=== PATIENT | male | born 1945 | race Caucasian/White ===

== ENCOUNTER → 2020-06-27 | Outpatient (CLI) | payer MEDICARE ==
--- NOTE | 2020-06-27 10:32 | Diagnostic Imaging Report ---
EXAM: Renal Ultrasound INDICATION: ^CKD STAGE 4 COMPARISON: None TECHNIQUE: Transverse and longitudinal images of the kidneys and bladder were obtained. FINDINGS: Right Kidney: Length: 12.3 cm Appearance: Normal echogenicity. Collecting system: No hydronephrosis Stones: None Cyst/Mass: Multiple simple renal cysts, the largest at the upper pole measures up to 4.9 x 4.5 x 4.2 cm. Left Kidney: Length: 10.5 cm Appearance: Normal echogenicity. Collecting system: No hydronephrosis Stones: None Cyst/Mass: None Bladder: No mass or calculi. Bilateral ureteral jets visualized. Prevoid volume estimate of 67 cc. Postvoid images demonstrate residual bladder volume of 14 cc. The prostate appears within normal limits with volume estimate of 21 cc. IMPRESSION: No hydronephrosis or renal calculi. Simple right renal cysts measure up to 4.9 cm. Pre and post void bladder volumes as above. Signed by: Modesta Shannon MD on 06/27/2020 10:29 AM
== END ==
LOC: US 09:16
PROVIDERS: ATTEND Internal Medicine Nephrology
DX: N18.9 Chronic kidney disease, unspecified (principal)
CPT/HCPCS: 76770; 76857

== ENCOUNTER 2023-08-29 06:18 | Inpatient (IN) | payer MEDICARE, OTHER ==
[~2023-08-29] VITALS: Ht 172.7 cm; Wt 77.1 kg
[2023-08-29] MEDS ORDERED: Vancomycin IV 1.25 GM in SODIUM CHLORIDE 0.9% 250ML 250 ML IV STA (06:43)
[2023-08-29] MEDS ORDERED: SODIUM CHLORIDE 0.9% 1000ML 1,000 ML IV ONE (06:45)
[2023-08-29] MEDS ORDERED: CEFEPIME 2 GM in SODIUM CHLORIDE 0.9% 100 ML IV ONE (06:45)
[2023-08-29] MEDS ORDERED: ACETAMINOPHEN 325 MG TAB PO ONE (07:00)
[2023-08-29] MEDS ORDERED: Vancomycin IV 500 MG ONE (07:16)
[2023-08-29 07:27] LABS: BASOPHILS # (AUTO) 0.1 (0.0-0.1); BASOPHILS % 0.3 % (0.0-1.0); EOSINOPHILS % 0.1 % (0.0-6.0); HEMOGLOBIN 9.5 g/dL (14.0-18.0); LYMPHOCYTES # (AUTO) 0.4 (1.0-3.2); LYMPHOCYTES % 2.4 % (18.0-39.1); MEAN CORPUSCULAR HEMOGLOBIN 31.1 pg (28-32); MEAN CORPUSCULAR HGB CONC 31.7 g/dL (31-35); MEAN CORPUSCULAR VOLUME 98.4 fL (81-99); MONOCYTES % 6.4 % (4.4-11.3); NEUTROPHILS # (AUTO) 13.8 (2.1-6.9); NEUTROPHILS % 90.4 % (38.7-80.0); PLATELET COUNT 240 x10e3/uL (140-360); RED BLOOD COUNT 3.05 x10e6/uL (4.3-5.7); RED CELL DISTRIBUTION WIDTH 14.3 % (11.7-14.4); WHITE BLOOD COUNT 15.22 x10e3/uL (4.8-10.8)
[2023-08-29 07:41] LABS: INR 1.15; PROTHROMBIN TIME 14.9 seconds (11.9-14.5)
[2023-08-29 07:42] LABS: PARTIAL THROMBOPLASTIN TIME 45.2 seconds (23.8-35.5)
[2023-08-29 07:45] LABS: ALBUMIN 2.7 g/dL (3.5-5.0); ALBUMIN/GLOBULIN RATIO 0.5 (0.8-2.0); BILIRUBIN,TOTAL 0.6 mg/dL (0.2-1.2); CALCIUM 8.9 mg/dL (8.4-10.2); TOTAL PROTEIN 7.7 g/dL (6.5-8.1)
[2023-08-29 09:28] LABS: BACTERIA,URINE FEW /HPF; BILIRUBIN,URINE NEGATIVE (NEGATIVE); CLARITY,URINE SL CLOUDY (CLEAR); COLOR,URINE YELLOW (YELLOW); EPITHELIAL CELLS,URINE FEW /LPF; GLUCOSE, URINE 500 (NEGATIVE); KETONES,URINE NEGATIVE (NEGATIVE); LEUKOCYTE ESTERASE ,URINE SMALL (NEGATIVE); NITRITE,URINE NEGATIVE (NEGATIVE); PH,URINE 7 (5 - 7); PROTEIN,URINE DIPSTICK 1+ (NEGATIVE); URINE UROBILINOGEN 0.2 mg/dL (0.2 - 1); WBC,URINE (MAN) >50 /HPF (0-5)
[2023-08-29] MEDS ORDERED: SODIUM CHLORIDE FLUSH 10 ML SYR INJ PRN (09:45)
[2023-08-29] MEDS ORDERED: SODIUM CHLORIDE 0.9% 500ML 500 ML IV ONE (09:45)
[2023-08-29 10:30] VITALS: BP_SYST 148; BP_SYST 154; BP_DIAS 70; BP_DIAS 89; PULSE 110; PULSE 98; RESP 18; RESP 19; TEMP 97.8; TEMP 98.6; O2SAT 99
[2023-08-29] MEDS ORDERED: DOXAZOSIN MESYLA2 MG PO (11:02)
[2023-08-29] MEDS ORDERED: CRESTOR40 MG PO (11:02)
[2023-08-29] MEDS ORDERED: B12 ACTIVE1000 MCG (11:02)
[2023-08-29] MEDS ORDERED: AMLODIPINE BESY10 MG PO (11:02)
[2023-08-29] MEDS ORDERED: LISINOPRIL10 MG PO (11:02)
[2023-08-29] MEDS ORDERED: PROBIOTIC & AC1 EACH PO (11:02)
[2023-08-29] MEDS ORDERED: METOPROLOL SUCC50 MG PO (11:02)
[2023-08-29] MEDS ORDERED: LANTUS 3ML100 UNITS/ SQ (11:02)
[2023-08-29] MEDS ORDERED: ULTRAM 50MG50 MG PO (11:02)
[2023-08-29] MEDS ORDERED: FENOFIBRATE145 MG PO (11:02)
[2023-08-29] MEDS ORDERED: FISH OIL 1,201200 MG PO (11:02)
[2023-08-29] MEDS ORDERED: FUROSEMIDE40 MG PO (11:02)
[2023-08-29] MEDS ORDERED: RAYALDEE30 MCG (11:02)
[2023-08-29] MEDS ORDERED: LEVOTHYROXINE50 MCG PO (11:02)
[2023-08-29] MEDS ORDERED: DOXYCYCLINE HY100 MG PO (11:02)
[2023-08-29] MEDS ORDERED: NEXIUM40 MG PO (11:02)
[2023-08-29] MEDS ORDERED: CLOPIDOGREL75 MG PO (11:02)
[2023-08-29] MEDS ORDERED: ALLOPURINOL100 MG PO (11:02)
[2023-08-29] MEDS ORDERED: ASPIRIN81 MG PO (11:03)
[2023-08-29 16:57] VITALS: BP 149/88; PULSE 112; RESP 17; TEMP 99.9; O2SAT 100
[2023-08-29 20:00] VITALS: BP 151/60; PULSE 107; RESP 22; TEMP 97.2; O2SAT 96
[2023-08-30] VITALS (7 sets, daily range): BP systolic 144–172; BP diastolic 60–67; PULSE 100–108; RESP 18–21; TEMP 97.6–98.1; O2SAT 96–100
[2023-08-30 07:07] LABS: BASOPHILS % 0.3 % (0.0-1.0); HEMATOCRIT 28.3 % (38.2-49.6); LYMPHOCYTES # (AUTO) 0.5 (1.0-3.2); LYMPHOCYTES % 3.2 % (18.0-39.1); MEAN CORPUSCULAR HGB CONC 31.8 g/dL (31-35); MEAN CORPUSCULAR VOLUME 97.6 fL (81-99); MONOCYTES # (AUTO) 0.8 (0.2-0.8); MONOCYTES % 5.3 % (4.4-11.3); NEUTROPHILS # (AUTO) 13.1 (2.1-6.9); NEUTROPHILS % 89.8 % (38.7-80.0); PLATELET COUNT 231 x10e3/uL (140-360); RED CELL DISTRIBUTION WIDTH 14.1 % (11.7-14.4)
[2023-08-30 07:32] LABS: ALBUMIN 2.1 g/dL (3.5-5.0); ALBUMIN/GLOBULIN RATIO 0.5 (0.8-2.0); BILIRUBIN,TOTAL 0.6 mg/dL (0.2-1.2); CALCIUM 8.5 mg/dL (8.4-10.2); CREATININE, SERUM 2.12 mg/dL (0.72-1.25); TOTAL PROTEIN 6.4 g/dL (6.5-8.1)
[2023-08-30] MEDS ORDERED: POTASSIUM CHLORIDE 20 MEQ TAB CR PO ONE (10:10)
[2023-08-30] MEDS: ONDANSETRON HCL INJ 2MG/ML 2ML 2 MG/ML VIAL IV PRN (17:29)
[2023-08-31] VITALS (8 sets, daily range): BP systolic 137–159; BP diastolic 47–82; PULSE 100–113; RESP 17–19; TEMP 97.4–98.5; O2SAT 96–100
[2023-08-31 05:43] LABS: BASOPHILS % 0.2 % (0.0-1.0); EOSINOPHILS % 0.1 % (0.0-6.0); HEMATOCRIT 29.5 % (38.2-49.6); HEMOGLOBIN 9.6 g/dL (14.0-18.0); LYMPHOCYTES # (AUTO) 0.4 (1.0-3.2); LYMPHOCYTES % 3.3 % (18.0-39.1); MEAN CORPUSCULAR HEMOGLOBIN 30.9 pg (28-32); MEAN CORPUSCULAR HGB CONC 32.5 g/dL (31-35); MEAN CORPUSCULAR VOLUME 94.9 fL (81-99); MONOCYTES # (AUTO) 0.5 (0.2-0.8); MONOCYTES % 4.3 % (4.4-11.3); NEUTROPHILS # (AUTO) 11.2 (2.1-6.9); NEUTROPHILS % 91.2 % (38.7-80.0); PLATELET COUNT 246 x10e3/uL (140-360); RED BLOOD COUNT 3.11 x10e6/uL (4.3-5.7); RED CELL DISTRIBUTION WIDTH 13.9 % (11.7-14.4)
[2023-08-31 06:12] LABS: ANION GAP 16.4 mmol/L (8-16); CALCIUM 9.1 mg/dL (8.4-10.2); CREATININE, SERUM 1.66 mg/dL (0.72-1.25)
[2023-08-31 06:16] LABS: POTASSIUM 3.4 mmol/L (3.5-5.1)
[2023-08-31 07:02] LABS: CHOL/HDL RATIO 4.1 (3.9-4.7)
[2023-08-31 07:23] LABS: FREE T4 (FREE THYROXINE) 0.9 ng/dL (0.8-1.8); THYROID STIMULATING HORMONE 2.131 uIU/mL (0.350-4.940)
[2023-08-31] MEDS ORDERED: POTASSIUM CHLORIDE 20 MEQ TAB CR PO ONE (09:45)
[2023-08-31] MEDS: ONDANSETRON HCL INJ 2MG/ML 2ML 2 MG/ML VIAL IV PRN (11:25)
[2023-09-01] VITALS (8 sets, daily range): BP systolic 127–170; BP diastolic 55–76; PULSE 96–113; RESP 16–21; TEMP 97.4–98.5; O2SAT 95–100
[2023-09-01 06:23] LABS: ANION GAP 15.8 mmol/L (8-16); CREATININE, SERUM 1.49 mg/dL (0.72-1.25); POTASSIUM 3.8 mmol/L (3.5-5.1)
[2023-09-01] MEDS ORDERED: ACETAMINOPHEN 325 MG TAB PO PRN (07:45)
[2023-09-01] MEDS ORDERED: METOPROLOL TARTRATE INJ 1 MG/ML VIAL IV PRN (07:45)
[2023-09-01] MEDS ORDERED: POLYETHYLENE GLYCOL 3350 17 GM PACK PO PRN (07:45)
[2023-09-01] MEDS ORDERED: FISH OIL PO SCH (09:00)
[2023-09-01] MEDS ORDERED: DHA PO SCH (09:00)
[2023-09-01] MEDS ORDERED: LEVOTHYROXINE SODIUM 50 MCG TAB PO SCH (09:00)
[2023-09-01] MEDS ORDERED: [UNRECOGNIZED DRUG - OTHER] PO SCH (09:00)
[2023-09-01] MEDS ORDERED: OMEGA PO SCH (09:00)
[2023-09-01] MEDS ORDERED: EPA PO SCH (09:00)
[2023-09-01] MEDS: AMLODIPINE BESYLATE 10 MG TAB PO SCH (09:11)
[2023-09-01] MEDS: OMEGA 3 POLYUNSAT FATTY ACIDS 1000 MG SOFTGEL PO SCH (09:12)
[2023-09-01] MEDS: METOPROLOL SUCCINATE 50 MG TAB XL PO SCH (09:12)
[2023-09-01] MEDS: LISINOPRIL 20 MG TAB PO SCH ×2 (09:12→16:17)
[2023-09-01] MEDS: FENOFIBRATE 145 MG TAB PO SCH (09:12)
[2023-09-01] MEDS: DOXAZOSIN MESYLATE 2 MG TAB PO SCH (09:13)
[2023-09-01] MEDS: ASPIRIN 81 MG CHEW TAB PO SCH (09:13)
[2023-09-01] MEDS: LACTOBACILLUS ACIDOPHILUS CAPSULE PO SCH (09:14)
[2023-09-01] MEDS: ALLOPURINOL 100 MG TAB PO SCH (09:14)
[2023-09-01] MEDS: PANTOPRAZOLE SOD 40 MG TABEC PO SCH ×2 (09:14→16:16)
[2023-09-01] MEDS: LEVOTHYROXINE SODIUM 100 MCG TAB PO SCH (09:14)
[2023-09-01] MEDS: DOXYCYCLINE HYCLATE TABLET 100 MG TAB PO SCH (09:15)
[2023-09-01] MEDS: CLOPIDOGREL BISULFATE 75 MG TAB PO SCH (09:15)
[2023-09-01] MEDS: TRAMADOL HCL 50 MG TAB PO PRN ×2 (09:33→10:13)
[2023-09-01] MEDS: FUROSEMIDE 40 MG TAB PO SCH (09:38)
[2023-09-01] MEDS: DOCUSATE SODIUM 100 MG CAP PO SCH ×2 (09:38→16:17)
[2023-09-01] MEDS: ENOXAPARIN 30 MG/0.3 ML SYR SC SCH (16:17)
[2023-09-01] MEDS: MUPIROCIN 2% OINT 22 GM TUBE TOP SCH (17:24)
[2023-09-01] MEDS: BALSAM PERU/CASTOR OIL 60 GM OINT...G. TP SCH (17:24)
[2023-09-01] MEDS: CRESTOR 10MG PO SCH (21:14)
[2023-09-02 00:10] VITALS: BP 134/65; PULSE 92; RESP 18; TEMP 97.4; O2SAT 99
[2023-09-02] MEDS: INSULIN GLARGINE 100 UNITS/ML VIAL SQ SCH ×2 (00:44→20:35)
[2023-09-02 04:00] VITALS: BP 126/49; PULSE 92; RESP 18; TEMP 98.1; O2SAT 100
[2023-09-02 06:05] LABS: BASOPHILS % 0.4 % (0.0-1.0); EOSINOPHILS # (AUTO) 0.1 (0.0-0.4); EOSINOPHILS % 1.5 % (0.0-6.0); HEMATOCRIT 29.3 % (38.2-49.6); HEMOGLOBIN 9.5 g/dL (14.0-18.0); LYMPHOCYTES # (AUTO) 0.4 (1.0-3.2); LYMPHOCYTES % 4.5 % (18.0-39.1); MEAN CORPUSCULAR HEMOGLOBIN 30.9 pg (28-32); MEAN CORPUSCULAR HGB CONC 32.4 g/dL (31-35); MEAN CORPUSCULAR VOLUME 95.4 fL (81-99); MONOCYTES # (AUTO) 0.4 (0.2-0.8); MONOCYTES % 5.3 % (4.4-11.3); NEUTROPHILS % 87.1 % (38.7-80.0); PLATELET COUNT 263 x10e3/uL (140-360); RED BLOOD COUNT 3.07 x10e6/uL (4.3-5.7); RED CELL DISTRIBUTION WIDTH 13.7 % (11.7-14.4); WHITE BLOOD COUNT 8.06 x10e3/uL (4.8-10.8)
[2023-09-02 06:25] LABS: ALBUMIN 2.1 g/dL (3.5-5.0); ALBUMIN/GLOBULIN RATIO 0.5 (0.8-2.0); ANION GAP 12.6 mmol/L (8-16); BILIRUBIN,TOTAL 0.3 mg/dL (0.2-1.2); CALCIUM 8.4 mg/dL (8.4-10.2); CREATININE, SERUM 1.5 mg/dL (0.72-1.25); POTASSIUM 3.6 mmol/L (3.5-5.1); TOTAL PROTEIN 6.4 g/dL (6.5-8.1)
[2023-09-02 08:11] VITALS: BP 148/69; PULSE 67; RESP 19; TEMP 97.7; O2SAT 100
[2023-09-02] MEDS: LEVOTHYROXINE SODIUM 100 MCG TAB PO SCH (08:53)
[2023-09-02] MEDS: DOCUSATE SODIUM 100 MG CAP PO SCH ×2 (08:53→16:05)
[2023-09-02] MEDS: OMEGA 3 POLYUNSAT FATTY ACIDS 1000 MG SOFTGEL PO SCH (08:53)
[2023-09-02] MEDS: PANTOPRAZOLE SOD 40 MG TABEC PO SCH ×2 (08:54→16:04)
[2023-09-02] MEDS: AMLODIPINE BESYLATE 10 MG TAB PO SCH (08:54)
[2023-09-02] MEDS: LACTOBACILLUS ACIDOPHILUS CAPSULE PO SCH (08:54)
[2023-09-02] MEDS: DOXAZOSIN MESYLATE 2 MG TAB PO SCH (08:55)
[2023-09-02] MEDS: ASPIRIN 81 MG CHEW TAB PO SCH (08:56)
[2023-09-02] MEDS: METOPROLOL SUCCINATE 50 MG TAB XL PO SCH (08:57)
[2023-09-02] MEDS: LISINOPRIL 20 MG TAB PO SCH ×2 (08:57→16:05)
[2023-09-02] MEDS: ALLOPURINOL 100 MG TAB PO SCH (08:57)
[2023-09-02] MEDS: CLOPIDOGREL BISULFATE 75 MG TAB PO SCH (08:57)
[2023-09-02] MEDS: DOXYCYCLINE HYCLATE TABLET 100 MG TAB PO SCH (08:58)
[2023-09-02] MEDS: FENOFIBRATE 145 MG TAB PO SCH (08:58)
[2023-09-02] MEDS: MUPIROCIN 2% OINT 22 GM TUBE TOP SCH (09:01)
[2023-09-02] MEDS: FUROSEMIDE 40 MG TAB PO SCH (09:08)
[2023-09-02] MEDS: TRAMADOL HCL 50 MG TAB PO PRN (09:08)
[2023-09-02 13:07] VITALS: BP 126/50; PULSE 90; RESP 19; TEMP 97.4; O2SAT 98
[2023-09-02] MEDS ORDERED: ONDANSETRON HCL 4 MG ORAL DISINTEGRATING TAB PO PRN (13:30)
[2023-09-02] MEDS: ENOXAPARIN 30 MG/0.3 ML SYR SC SCH (16:05)
[2023-09-02 16:24] VITALS: BP 144/49; PULSE 90; RESP 19; TEMP 97; O2SAT 96
[2023-09-02] MEDS ORDERED: VENELEX OINTMEN60 GM TP (16:45)
[2023-09-02] MEDS ORDERED: LOVENOX30 MG/0.3 SC (16:45)
[2023-09-02] MEDS ORDERED: Sodium Chloride Flush INJ (16:45)
[2023-09-02] MEDS ORDERED: Metoprolol Tartrate Inj IV (16:45)
[2023-09-02] MEDS ORDERED: MUPIROCIN22 GM TOP (16:45)
[2023-09-02] MEDS ORDERED: ONDANSETRON ODT4 MG PO (16:45)
[2023-09-02] MEDS ORDERED: CEFTRIAXONE1 GM IV (16:45)
[2023-09-02] MEDS ORDERED: MIRALAX17 GM PO (16:45)
[2023-09-02] MEDS ORDERED: ACETAMINOPHEN325 M1 PO (16:45)
[2023-09-02] MEDS ORDERED: OMEGA-3 FISH O1 EAC2 PO (16:45)
[2023-09-02] MEDS ORDERED: Insulin Glargine SQ (16:45)
[2023-09-02] MEDS ORDERED: Docusate Sodium PO (16:45)
[2023-09-02] MEDS: BALSAM PERU/CASTOR OIL 60 GM OINT...G. TP SCH (18:45)
[2023-09-02 20:00] VITALS: BP 126/56; PULSE 85; RESP 20; TEMP 97.5; O2SAT 90; O2SAT 96
[2023-09-02] MEDS: CRESTOR 10MG PO SCH (20:36)
== END 2023-09-02 21:19 | DRG 872 ==
LOC: ER 06:21 → ERHOLD 09:42 → MED/SURG2 10:15 → OBSVTOIN 08-31 08:41
PROVIDERS: ADMIT Internal Medicine; ATTEND Internal Medicine
DX: A41.9 Sepsis, unspecified organism (principal); N39.0 Urinary tract infection, site not specified; N17.9 Acute kidney failure, unspecified; N18.4 Chronic kidney disease, stage 4 (severe); I13.0 Hypertensive heart and chronic kidney disease with heart failure and stage 1 through stage 4 chronic kidney disease, or unspecified chronic kidney disease; I50.32 Chronic diastolic (congestive) heart failure; R65.20 Severe sepsis without septic shock; I25.10 Atherosclerotic heart disease of native coronary artery without angina pectoris; J44.9 Chronic obstructive pulmonary disease, unspecified; F17.218 Nicotine dependence, cigarettes, with other nicotine-induced disorders; E11.51 Type 2 diabetes mellitus with diabetic peripheral angiopathy without gangrene; E11.65 Type 2 diabetes mellitus with hyperglycemia; R53.81 Other malaise; R53.1 Weakness; R55 Syncope and collapse; R26.2 Difficulty in walking, not elsewhere classified; D63.1 Anemia in chronic kidney disease; E03.9 Hypothyroidism, unspecified; L89.322 Pressure ulcer of left buttock, stage 2; S80.912A Unspecified superficial injury of left knee, initial encounter; S51.811A Laceration without foreign body of right forearm, initial encounter; X58.XXXA Exposure to other specified factors, initial encounter; Y92.9 Unspecified place or not applicable; E11.22 Type 2 diabetes mellitus with diabetic chronic kidney disease; R13.10 Dysphagia, unspecified; I48.0 Paroxysmal atrial fibrillation; E87.6 Hypokalemia; M25.571 Pain in right ankle and joints of right foot; E78.00 Pure hypercholesterolemia, unspecified; S80.812A Abrasion, left lower leg, initial encounter; S80.811A Abrasion, right lower leg, initial encounter; K21.9 Gastro-esophageal reflux disease without esophagitis; Z95.1 Presence of aortocoronary bypass graft; Z79.899 Other long term (current) drug therapy; Z79.890 Hormone replacement therapy; Z79.4 Long term (current) use of insulin
CPT/HCPCS: 36415; 71045; 74230; 80048; 80053; 80061; 81001; 82948; 83036; 83605; 84439; 84443; 85025; 85610; 85730; 87040; 87086; 87400; 93005; 93306; 93880; 93925; 99252; 99284; G0378; J0692; J0696; J1650; J2405; J3370; J7030; J7040; J7050; U0002